=== PATIENT | female | born 1975 | race Caucasian/White ===

== ENCOUNTER → 2017-02-25 | Outpatient (CLI) | payer BC ==
[~2017-02-25] MED LIST: LEVOTHYROXIN0.025 MG PO; PRENATAL1 TA1 PO
== END ==
LOC: MC.RAD 15:04
DX: Z12.31 Encounter for screening mammogram for malignant neoplasm of breast (principal)

== ENCOUNTER → 2018-04-17 | Outpatient (CLI) | payer BC | LOC: MC.RAD 07:20 | DX: Z12.31 Encounter for screening mammogram for malignant neoplasm of breast (principal) ==

== ENCOUNTER → 2018-10-19 | Outpatient (CLI) | payer BC | LOC: COL.RAD 08:50 | DX: R10.11 Right upper quadrant pain (principal) ==

== ENCOUNTER → 2020-05-09 | Outpatient (CLI) | payer BC | LOC: MC.RAD 14:40 | DX: Z12.31 Encounter for screening mammogram for malignant neoplasm of breast (principal) ==

== ENCOUNTER → 2021-06-11 | Outpatient (CLI) | payer BC | LOC: MC.RAD 14:45 | DX: Z12.31 Encounter for screening mammogram for malignant neoplasm of breast (principal) ==

== ENCOUNTER → 2022-05-17 | Outpatient (CLI) | payer BC | LOC: COL.RAD 08:52 | DX: R22.31 Localized swelling, mass and lump, right upper limb (principal) ==

== ENCOUNTER → 2022-06-17 | Outpatient (CLI) | payer BC | LOC: MC.RAD 06-15 09:15 | DX: Z12.31 Encounter for screening mammogram for malignant neoplasm of breast (principal) ==

== ENCOUNTER → 2024-07-16 | Outpatient (CLI) | payer BC ==
[~2024-07-16] MED LIST changes: +SYNTHROID0.05 MG/TA PO
== END ==
LOC: MC.RAD 11:14
DX: Z12.31 Encounter for screening mammogram for malignant neoplasm of breast (principal)